=== PATIENT | female | born 1990 | race Asian ===

== ENCOUNTER 2024-06-30 19:37 | Inpatient (IN) | payer OTHER ==
[2024-06-30 20:00] VITALS: BMI 21.2
[2024-06-30] MEDS ORDERED: BENZONATATE 200 MG CAPSULE PO PRN (21:16)
[2024-06-30] MEDS ORDERED: BISMUTH SUBSALICYLATE 524 MG/30 ML PO PRN (21:16)
[2024-06-30] MEDS ORDERED: NICOTINE POLACRILEX 2 MG GUM BUC PRN (21:16)
[2024-06-30] MEDS ORDERED: hydrOXYzine PAMOATE 25 MG CAPSULE (FP) PO PRN (21:16)
[2024-06-30] MEDS ORDERED: BENZOCAINE/MENTHOL (CHLORASEPTIC ) LOZENGE MM PRN (21:16)
[2024-06-30] MEDS ORDERED: DICYCLOMINE HCL 10 MG CAPSULE PO PRN (21:16)
[2024-06-30] MEDS ORDERED: NALOXONE (NARCAN) HCL 4 MG/0.1 ML SPRAY NS PRN (21:16)
[2024-06-30] MEDS ORDERED: guaiFENesin 600 MG TABLET.ER (FP) PO PRN (21:16)
[2024-06-30] MEDS ORDERED: MAGNESIUM HYDROX 2400MG/30ML ORAL SUSPENSION 30 ML CUP PO PRN (21:16)
[2024-06-30] MEDS ORDERED: ONDANSETRON *ODT* 4 MG TABLET SL PRN (21:16)
[2024-06-30] MEDS ORDERED: NALOXONE HCL 0.4 MG/ML VIAL IM PRN (21:16)
[2024-06-30] MEDS ORDERED: POLYETHYLENE GLYCOL (HEALTHYLAX) 3350 17 GM PACKET PO PRN (21:16)
[2024-06-30] MEDS ORDERED: cloNIDine HCL 0.1 MG TABLET ONE (21:36)
[2024-06-30] MEDS ORDERED: MELATONIN 5 MG TABLETS ONE (21:36)
[2024-06-30] MEDS: cloNIDine HCL 0.1 MG TABLET PO ONE (21:38)
[2024-06-30] MEDS: THIAMINE 100 MG TABLET PO SCH (21:39)
[2024-06-30] MEDS: MELATONIN 5 MG TABLETS PO SCH (21:39)
[2024-07-01] MEDS ORDERED: chlordiazePOXIDE HCL 25 MG CAPSULE PO PRN (08:40)
[2024-07-01] MEDS: NALTREXONE HCL 50 MG TABLET PO SCH (10:21)
[2024-07-01] MEDS: PRENATAL VITAMINS W/ FOLIC ACID TABLET (FP) PO SCH (10:21)
[2024-07-01] MEDS: chlordiazePOXIDE HCL 25 MG CAPSULE PO SCH (10:21)
[2024-07-01] MEDS: LOPERAMIDE HCL 2 MG CAPSULE PO PRN (10:24)
[2024-07-01] MEDS: NICOTINE 14 MG/24 HOURS TOPICAL PATCH TD SCH (10:25)
[2024-07-01 11:20] LABS: HEMATOCRIT 36.3 % (32.4-45.2); HEMOGLOBIN 12.2 GM/dL (10.7-15.3); MCH 32.4 pg (25.7-33.7); MCHC 33.5 g/dl (32.0-36.0); MEAN CELL VOLUME 96.5 fl (80-96); PLATELET COUNT 224 10^3/uL (134-434); RBC 3.76 M/mm3 (3.60-5.2); RDW 12.8 % (11.6-15.6); WHITE BLOOD COUNT 9.9 K/mm3 (4.0-10.0)
[2024-07-01 13:29] LABS: CHLORIDE 103 mmol/L (98-107); POTASSIUM 3.6 mmol/L (3.5-5.1); SODIUM 140 mmol/L (136-145)
[2024-07-01 13:34] LABS: ALBUMIN 3.1 g/dl (3.4-5.0); ANION GAP 12 mmol/L (4-13); BLOOD UREA NITROGEN 7.6 mg/dL (7-18); CO2 26 mmol/L (21-32); GLUCOSE,RANDOM 78 mg/dL (74-106)
[2024-07-01 13:37] LABS: CREATININE 0.5 mg/dL (0.55-1.3); SGOT/AST 53 U/L (15-37)
[2024-07-01 13:39] LABS: ALK PHOS 102 U/L (45-117); BILIRUBIN,TOTAL 0.9 mg/dL (0.2-1); TOT PROT 6.2 g/dl (6.4-8.2)
[2024-07-01 13:54] LABS: SGPT/ALT 36 U/L (13-61)
[2024-07-01] MEDS: IBUPROFEN 600 MG TABLET (FP) PO PRN (17:09)
[2024-07-01] MEDS: METHOCARBAMOL 500 MG TABLET PO PRN (22:17)
[2024-07-02] MEDS: DEXTROAMPHETAMINE/AMPHETAMINE 20 MG CAP.ER.24H PO SCH (10:15)
[2024-07-02] MEDS: IBUPROFEN 400 MG TABLET (FP) PO PRN (10:18)
[2024-07-02 13:08] VITALS: RESP 16
[2024-07-02] MEDS: ACETAMINOPHEN 325 MG TABLET (FP) PO PRN (14:48)
[2024-07-02] MEDS: MAG HYDROX/AL HYDROX/SIMETH 30 ML UNIT-DOSE CUP PO PRN (18:02)
[2024-07-03] MEDS: chlordiazePOXIDE HCL 25 MG CAPSULE PO SCH (05:40)
[2024-07-03] MEDS: MUPIROCIN 2% TOPICAL OINTMENT 22 GM TUBE TP SCH (09:33)
[2024-07-03 10:42] VITALS: BP 146/88; PULSE 113; TEMP 97.5
[2024-07-04] MEDS ORDERED: chlordiazePOXIDE HCL 10 MG CAPSULE PO PRN
[2024-07-04] MEDS ORDERED: chlordiazePOXIDE HCL 10 MG CAPSULE PO SCH (05:00)
[2024-07-05] MEDS ORDERED: chlordiazePOXIDE HCL 10 MG CAPSULE PO SCH (05:00)
[2024-07-06] MEDS ORDERED: chlordiazePOXIDE HCL 10 MG CAPSULE PO ONE (05:00)
== END 2024-07-03 09:40 | disposition left against medical advice (07) | DRG 770 ==
LOC: YASAS 19:37 → Y3N 21:34
PROVIDERS: ADMIT Allergy & Immunology; ATTEND Surgery
PROC: HZ2ZZZZ Detoxification Services for Substance Abuse Treatment (ICD-10-PCS; principal; 2024-06-30)
DX: F10.230 Alcohol dependence with withdrawal, uncomplicated (principal); F41.9 Anxiety disorder, unspecified; F32.A Depression, unspecified; F90.9 Attention-deficit hyperactivity disorder, unspecified type; J45.909 Unspecified asthma, uncomplicated; Z87.891 Personal history of nicotine dependence
CPT/HCPCS: 36415; 80053; 80305; 80307; 81025; 85027; 86780